=== PATIENT | male | born 2000 | race African-American/Black ===

== ENCOUNTER → 2021-06-26 | Emergency (ER) | payer OTHER ==
[2021-06-26 17:43] VITALS: BP 138/78; PULSE 62; TEMP 98.6; BMI 22.7
== END | disposition left against medical advice (07) ==
LOC: JERFT 17:18
DX: S99.912A Unspecified injury of left ankle, initial encounter (principal); W01.0XXA Fall on same level from slipping, tripping and stumbling without subsequent striking against object, initial encounter
CPT/HCPCS: 99281-25